=== PATIENT | female | born 1960 | race Caucasian/White ===

== ENCOUNTER → 2019-04-06 17:05 | Outpatient (CLI) | payer OTHER, SELFPAY ==
[2019-04-06 16:42] VITALS: BMI 51.0
--- NOTE | 2019-04-06 17:10 | RAD_ITS ---
STUDY: X-RAY - RIGHT ANKLE REASON FOR EXAM: Female, 59 years old. Right ankle pain/injury TECHNIQUE: 3 view(s) of the ankle. COMPARISON: None. FINDINGS: No visualized acute fracture. Mild soft tissue swelling is seen around the lower leg. Soft tissue calcifications are seen on the medial side of the lower leg. Normal visualized distal tibia and fibula. Normal medial and lateral malleoli. Normal tibiotalar articulation and ankle mortise. A small plantar calcaneal spur is present. The visualized subtalar, talonavicular, calcaneocuboid and tarsal articulations are normal. The soft tissue structures are unremarkable. RAD/Ankle min 3 Views IMPRESSION: Mild soft tissue swelling. No acute fracture. Electronically Signed: Good Barba MD at 17:28 EST , Service support ,
== END ==
PROVIDERS: Family Provider Internal Medicine; PCP Internal Medicine; Referring Provider Physician Assistant Surgical; Visit Provider Physician Assistant Surgical
DX: M25.571 Pain in right ankle and joints of right foot (principal)
CPT/HCPCS: 73610

== ENCOUNTER → 2021-03-08 09:27 | Outpatient (CLI) | payer OTHER, SELFPAY | PROVIDERS: PCP Internal Medicine; Visit Provider Family Medicine | DX: Z23 Encounter for immunization (principal) | CPT/HCPCS: 0004A; 91300 ==